=== PATIENT | female | born 1960 | race Two or more races ===

== ENCOUNTER 2020-03-29 22:21 | Inpatient (IN) | payer MEDICAID, SELFPAY ==
[~2020-03-29] VITALS: Ht 149.9 cm; Wt 45.3 kg
[2020-03-29] MEDS ORDERED: SODIUM CHLORIDE 0.9% 500 ML IV ONE (23:00)
[2020-03-29] MEDS ORDERED: SODIUM CHLORIDE 0.9% 1,000 ML IV ONE (23:00)
[2020-03-29 23:20] LABS: Hematocrit 24.8 % (36.0-46.0); Mean Corpuscular Hemoglobin 29.8 pg (28.0-32.0); Urine Bacteria FEW /hpf (None Seen); Urine Blood Negative /uL (Negative); Urine Hyaline Cast MANY /lpf (0 - 2); Urine Mucus FEW (None Seen); Urine Specific Gravity 1.021 (1.001-1.035); Urine WBC 3 /hpf (0 - 5)
[2020-03-29 23:22] LABS: Mean Corpuscular Hgb Conc. 32.4 g/dL (32.0-36.0); Mean Corpuscular Volume 91.9 fL (80.0-100.0); Platelet Count (auto) 88 10^3/uL (140-450); Red Cell Distribution Width 14.7 % (11.8-14.3); White Blood Cell 9.4 10^3/uL (4.4-10.8)
[2020-03-29 23:25] LABS: Basophils % (manual) 0 (0.0-2.0); Blast Cells 0; Eosinophils % (manual) 0 (0-7); Myelocytes % 0; Promyelocytes % 0; Reactive Lymphocytes 0
[2020-03-29 23:33] LABS: Alanine Aminotransferase 8 U/L (13-56); Anion Gap 8 (5-15); Blood Urea Nitrogen 39 mg/dL (7-18); Carbon Dioxide 15 mmol/L (21-32); Chloride 127 mmol/L (98-107); Glucose 54 mg/dL (74-106); Magnesium 1.3 mg/dL (1.6-2.6); Sodium 150 mmol/L (136-145)
[2020-03-29 23:42] LABS: Alkaline Phosphatase 49 U/L (45-117); Aspartate Aminotransferase 20 U/L (15-37); BUN/Creatinine Ratio 139.3; Bilirubin, Total 0.1 mg/dL (0.2-1.0); CRP High Sensitivity 7.04 mg/dL (< 0.3); GFR African American 315 mL/min; GFR Non-African American 260 mL/min; Lactate Dehydrogenase 198 U/L (84-246)
[2020-03-29 23:47] LABS: Albumin 0.5 g/dL (3.4-5.0); Calcium < 5.0 mg/dL (8.5-10.1); Potassium 2.1 mmol/L (3.5-5.1)
[2020-03-30] MEDS ORDERED: CALCIUM GLUC 4.65meq/50ml D5AE 50 ML IV ONE
[2020-03-30] MEDS ORDERED: POTASSIUM CHL 20MEQ/100ML 100 ML IV ONE (00:04)
[2020-03-30] MEDS: POTASSIUM CHL 20MEQ/100ML 100 ML IV SCH ×2 (00:37→03:39)
[2020-03-30 00:40] LABS: Band Neutrophils % (manual) 29; Lymphocytes % (manual) 9 (10.0-50.0); Metamyelocytes % 2; Monocytes % (manual) 3 (0-12)
[2020-03-30] MEDS ORDERED: IOHEXOL 350 MG/ML 100ML IJ ONE (01:16)
[2020-03-30] MEDS ORDERED: PIPERACILLIN-TAZOB 3.375GM 100 ML IV ONE (05:30)
[2020-03-30] MEDS ORDERED: VANCOMYCIN 1GM/250ML 250 ML IV ONE (05:30)
[2020-03-30] MEDS ORDERED: MIDAZOLAM DRIP 50 mg/50mL 50 ML IV SCH (06:29)
[2020-03-30] MEDS ORDERED: ONDANSETRON HCL 4 MG/2 ML VIAL IV PRN (06:30)
[2020-03-30] MEDS: D5W/SOD CHL 0.45% 1,000 ML IV SCH ×2 (06:30→19:30)
[2020-03-30] MEDS ORDERED: NOREPINEPHRINE 8 MG/250ML KIT 250 ML IV SCH (06:32)
[2020-03-30] MEDS ORDERED: ALBUMIN 25% 100 ML IV ONE (07:00)
[2020-03-30] MEDS: MAGNESIUM SULFATE 1GM/100ML 100 ML IV SCH ×3 (08:47→09:08)
[2020-03-30 08:55] LABS: Calcium 7.2 mg/dL (8.5-10.1); Potassium 4.9 mmol/L (3.5-5.1)
[2020-03-30 08:59] LABS: INR 1.08 (0.9-1.15); Partial Thromboplastin Time 33.4 sec (23.64-32.05)
[2020-03-30] MEDS ORDERED: MAGNESIUM SULFATE 1GM/100ML 100 ML IV SCH (09:15)
[2020-03-30 09:46] LABS: Cholesterol 86 mg/dL (< 200)
[2020-03-30 09:50] LABS: HDL Cholesterol 8 mg/dL (40-59); LDL Cholesterol 50 mg/dL (< 100); Triglycerides 200 mg/dL (< 150)
[2020-03-30 09:55] LABS: Folate (Folic Acid) 16.44 ng/mL (5.38-24)
[2020-03-30] MEDS: DOXYCYCLINE 100MG/250ML 250 ML IV SCH ×2 (09:58→22:09)
[2020-03-30] MEDS ORDERED: ENOXAPARIN SOD 100 MG/1 ML SYRINGE SC SCH (10:00)
[2020-03-30] MEDS: ASPirin 81 mg TAB PO SCH (10:00)
[2020-03-30] MEDS ORDERED: ENOXAPARIN SOD 40 MG/0.4 ML SYRINGE SC SCH (10:00)
[2020-03-30] MEDS ORDERED: CHOLECALCIFEROL (VITD3) 1,000IU=25mCg TAB PO SCH (10:00)
[2020-03-30] MEDS ORDERED: ZINC SULFATE 220mg CAP or TAB PO SCH (10:00)
[2020-03-30] MEDS ORDERED: ASCORBIC ACID 1,000 MG TAB PO SCH (10:00)
[2020-03-30] MEDS ORDERED: ALBUTEROL SULF HFA 90MCG INH 200DOSE IN SCH (14:00)
[2020-03-30] MEDS: metroNIDAZOLE 500MG/100ML 100 ML IV SCH ×2 (14:27→21:34)
[2020-03-30] MEDS ORDERED: VANCOMYCIN HCL 125MG/5ML ORAL SOL GT SCH (18:00)
[2020-03-30] MEDS ORDERED: ATORVASTATIN 20 MG TAB PO SCH (22:00)
[2020-03-31] VITALS (50 sets, daily range): BP systolic 40–197; BP diastolic 21–97
[2020-03-31 04:14] LABS: Hemoglobin 15.4 g/dL (12.2-16.2); Mean Corpuscular Hemoglobin 29.5 pg (28.0-32.0); Mean Corpuscular Hgb Conc. 32.8 g/dL (32.0-36.0); Mean Corpuscular Volume 89.9 fL (80.0-100.0); Platelet Count (auto) 81 10^3/uL (140-450); Red Blood Cells 5.23 10^6/uL (4.0-5.20); Red Cell Distribution Width 15.4 % (11.8-14.3); White Blood Cell 11.7 10^3/uL (4.4-10.8)
[2020-03-31 04:28] LABS: Basophils % (manual) 0 (0.0-2.0); Blast Cells 0; Metamyelocytes % 0; Myelocytes % 0; Promyelocytes % 0
[2020-03-31 04:34] LABS: Albumin 1.4 g/dL (3.4-5.0); Potassium 3.3 mmol/L (3.5-5.1)
[2020-03-31 04:37] LABS: BUN/Creatinine Ratio 30.6; Bilirubin, Total 0.4 mg/dL (0.2-1.0); Total Protein 5.2 g/dL (6.4-8.2)
[2020-03-31 05:32] LABS: Band Neutrophils % (manual) 33; Eosinophils % (manual) 3 (0-7); Lymphocytes % (manual) 16 (10.0-50.0); Monocytes % (manual) 11 (0-12); Reactive Lymphocytes 1
[2020-03-31] MEDS: metroNIDAZOLE 500MG/100ML 100 ML IV SCH (05:35)
[2020-03-31] MEDS ORDERED: POTASSIUM CHL 20MEQ/100ML 100 ML IV ONE (06:45)
[2020-03-31] MEDS ORDERED: ALBUMIN 5% 250 ML IV ONE (07:15)
[2020-03-31] MEDS ORDERED: NOREPINEPHRINE 8 MG/250ML KIT 250 ML IV SCH (07:35)
[2020-03-31] MEDS ORDERED: DOPamine 1600MCG/ML D5W 250 ML IV SCH (07:35)
[2020-03-31] MEDS ORDERED: PHENYLEPHRINE IV 250 ML IV SCH (07:37)
[2020-03-31] MEDS ORDERED: NOREPINEPHRINE 8 MG/250ML KIT 250 ML IV ONE (07:40)
[2020-03-31] MEDS ORDERED: DOPamine 1600MCG/ML D5W 250 ML IV ONE (07:47)
[2020-03-31] MEDS ORDERED: PHENYLEPHRINE IV 250 ML IV ONE ×2 (07:51→09:37)
[2020-03-31] MEDS: ASPirin 81 mg TAB PO SCH (10:00)
== END 2020-03-31 19:35 | disposition expired | DRG 91 ==
LOC: ER 22:25 → EDBD 22:25 → TELE 22:26 → ICU WEST 03-31 02:30
PROVIDERS: ADMIT Nurse Practitioner; ATTEND Internal Medicine
PROC: 5A1935Z Respiratory Ventilation, Less than 24 Consecutive Hours (ICD-10-PCS; principal; 2020-03-29)
PROC: 0BH17EZ Insertion of Endotracheal Airway into Trachea, Via Natural or Artificial Opening (ICD-10-PCS; 2020-03-29)
DX: G93.1 Anoxic brain damage, not elsewhere classified (principal); G93.41 Metabolic encephalopathy; N17.9 Acute kidney failure, unspecified; C79.9 Secondary malignant neoplasm of unspecified site; E46 Unspecified protein-calorie malnutrition; E87.0 Hyperosmolality and hypernatremia; I74.10 Embolism and thrombosis of unspecified parts of aorta; C34.90 Malignant neoplasm of unspecified part of unspecified bronchus or lung; E83.51 Hypocalcemia; E83.52 Hypercalcemia; E86.0 Dehydration; E87.6 Hypokalemia; E88.09 Other disorders of plasma-protein metabolism, not elsewhere classified; F79 Unspecified intellectual disabilities; K52.9 Noninfective gastroenteritis and colitis, unspecified; Z66 Do not resuscitate; Z79.82 Long term (current) use of aspirin; Z79.899 Other long term (current) drug therapy; Z86.73 Personal history of transient ischemic attack (TIA), and cerebral infarction without residual deficits; Z68.20 Body mass index [BMI] 20.0-20.9, adult; Z03.818 Encounter for observation for suspected exposure to other biological agents ruled out
CPT/HCPCS: 36415; 36600; 70450; 71045; 71275; 80048; 80053; 80061; 81001; 82607; 82728; 82746; 82805; 83605; 83615; 83735; 83880; 84443; 85007; 85027; 85379; 85610; 85730; 86141; 87040; 87070; 87081; 87205; 87493; 87804; 87880; 94002; 94003; 99291; G0378; J0610; J2543; J3480; J3490; P9047